=== PATIENT | male | born 1935 | race Caucasian/White ===

== ENCOUNTER 2016-06-15 11:31 | Day surgery (SDC) | payer MEDICARE, SELFPAY ==
[2016-06-12 13:36] LABS: HEMATOCRIT 43.7 % (40.0-51.0); HEMOGLOBIN 14.4 g/dL (13.6-17.8)
[2016-06-12 13:48] LABS: BUN (BLOOD UREA NITROGEN) 14 MG/DL (6-23); CALCIUM, SERUM 8.7 MG/DL (8.5-10.4); CHLORIDE, SERUM 103 MMOL/L (96-112); CO2 (CARBON DIOXIDE) 29 MMOL/L (24-34); GFR AFRICAN AMERICAN 81 ML/MIN (>=60); GFR NON AFRICAN AMERICAN 70 ML/MIN (>=60); GLUCOSE, SERUM 99 MG/DL (60-99); POTASSIUM, SERUM 3.7 MMOL/L (3.5-5.3); SODIUM, SERUM 142 MMOL/L (135-148)
--- NOTE | ~2016-06-15 | OP ---
Record Of Operation [facility] [address] [place]. 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 POSTOPERATIVE DIAGNOSIS: Pseudoaneurysm of the celiac artery. PROCEDURE: 1. Ultrasound-guided percutaneous access, right common femoral artery. 2. Abdominal aortogram. 3. Selective catheterization of celiac artery. 4. Endovascular repair of the celiac artery pseudoaneurysm with coil embolization, and covered stent placement. SURGEON: Linda Solomon M.D. ANESTHESIA: Local with MAC. ESTIMATED BLOOD LOSS: 20 mL. CONTRAST: 99 mL. IV FLUIDS: 250 mL. COMPLICATIONS: None. INDICATION: Mr. Altamirano is a pleasant 80-year-old man, with recent discovery of celiac artery pseudoaneurysm, quite worrisome in appearance on CT scan. He is recommended for arteriogram and possible endovascular repair. DETAILS OF PROCEDURE: After informed consent was obtained, the patient was brought to the endovascular suite, and placed in supine position. After administration of IV sedation, he was prepped and draped in usual sterile fashion. A time-out was performed. I commenced the procedure with ultrasound-guided percutaneous access, right common femoral artery. This was done after anesthetizing the right groin with local anesthetic. Permanent image of the artery documenting patency was saved and stored in the patient's chart. I accessed with a micropuncture needle, and passed a micropuncture wire, and confirmed intra-arterial under fluoroscopy. I then upsized to a 5-Mexican sheath over a Bentson wire. I advanced the Bentson wire and [place] flush catheter in the abdominal aorta. AP abdominal aortogram was performed which showed the infrarenal aorta to be patent with no stenosis or aneurysmal disease. Single renal arteries were patent bilaterally with no stenosis. Normal ranching pattern of the distal mesenteric vessels were visualized. Lateral aortogram was performed as well that demonstrate the origin of the celiac and superior mesenteric artery which were patent with no stenosis. After that, I engaged the celiac origin with a daniel 2 and a Glidewire. Dedicated celiac artery arteriogram shows the pseudoaneurysm just distal to the origin. It does not appear to be involved in any of the branches to the celiac. After Record Of Operation [facility] [address] [place]. [address] NAME: RED RHODES : 31 STATUS : [facility] PAT#: [id number] AGE: 80 ADM/REG DATE : 06/15/16 MR#: [id number] REPORT SERV DATE: 06/16/16 DICTATED BY: LINDA SOLOMON. DATE: 06/16/16 REPORT STATUS : Draft TRANSCRIBED BY: MODL DATE: 06/16/16 that, we upsized to a 6.5-Mexican TourGuide sheath. I used a glide catheter to deploy a 6 mm and 4 mm coil within the pseudoaneurysm. I then crossed the celiac out of one of the distal branches with the V-18 wire. I then deployed a 6 mm x 2.5 cm Viabahn stent across the origin of pseudoaneurysm. Repeat contrast injection shows exclusion of pseudoaneurysm with no residual flow. After that, wires and catheters were removed. Right femoral artery arteriogram shows the puncture site in the mid common femoral artery. A ProGlide closure device was deployed uneventfully. The patient tolerated the procedure well with no complications. I was present for this entire case as dictated. [place] Linda Solomon M.D. / [id number] CC: Ariana Mendez J. SCOTT
[~2016-06-15 11:31] MED LIST: BEN25 PO; CARTIA XT120 MG/24 PO; FISH OIL1200 MG PO; GARLIC PO; HYDROCHLOROT25 MG PO; MELATONIN10 M2 PO; MOBIC7.5 PO; PRAV10 PO; SINGULAIR1 PO
[2016-06-15] MEDS ORDERED: PLAVIX PO (19:48)
[2016-06-15] MEDS ORDERED: ASAB PO (19:48)
== END 2016-06-15 20:55 | disposition home or self-care (01) ==
LOC: SDC 11:31 → SSU1 17:05
PROVIDERS: Surgery
PROC: 04L13DZ Occlusion of Celiac Artery with Intraluminal Device, Percutaneous Approach (ICD-10-PCS; principal; 2016-06-15 13:45)
PROC: 047 Lower Arteries, Dilation (ICD-10-PCS; 2016-06-15 13:45)
DX: I72.8 Aneurysm of other specified arteries (principal); I10 Essential (primary) hypertension; E78.5 Hyperlipidemia, unspecified; Z85.828 Personal history of other malignant neoplasm of skin
CPT/HCPCS: 36246; 36415; 37236; 37242; 75726; 76937; 80048; 85014; 85018; 93005; A9270-GY; C1760; C1769; C1874; C1884; C1887; C1893; C1894; J3010; Q9966